=== PATIENT | female | born 1995 | race African-American/Black ===

== ENCOUNTER → 2023-04-02 16:52 | Outpatient (CLI) | payer OTHER, SELFPAY ==
[2023-04-02 19:22] LABS: Urine N gonorrhoeae NOT DETECTED
[2023-04-02 19:33] LABS: Urine Chlamydia NOT DETECTED
== END ==
PROVIDERS: Visit Provider Student in an Organized Health Care Education/Training Program
DX: N39.0 Urinary tract infection, site not specified (principal); R10.9 Unspecified abdominal pain
CPT/HCPCS: 87086; 87491; 87591

== ENCOUNTER → 2023-04-02 17:45 | Outpatient (CLI) | payer OTHER, SELFPAY ==
--- NOTE | 2023-04-02 17:47 | DI.RAD.S_ITS ---
PROCEDURE: XR SACRUM COCCYX MIN 2V INDICATIONS: R low back pain, intermittent, worse with walking TECHNIQUE: 3 views of the sacrum and coccyx acquired. COMPARISON: None. FINDINGS: Bones: No fractures or dislocations. No suspicious bony lesions. Soft tissues: Visualized bowel gas pattern is normal. No suspicious soft tissue densities. IMPRESSION: No acute fracture. No osseous lesion. If symptoms and/or clinical suspicion for pathology persist, further assessment with repeat, or advanced imaging (e.g., CT, MRI, or bone scan) may be helpful for further assessment. Dictated by: Yin Hernandez M.D. on 04/02/2023 at 18:06 Approved by: Yin Hernandez M.D. on 04/02/2023 at 18:06
--- NOTE | 2023-04-02 17:47 | DI.RAD.S_ITS ---
PROCEDURE: XR LUMBAR SPINE 2-3V INDICATIONS: R low back pain, intermittent, worse with walking TECHNIQUE: 3 views of the lumbar spine were acquired. COMPARISON: None. FINDINGS: Bones: 5 [id number] vertebrae are present. There is normal bony alignment. No vertebral body compression fractures. No suspicious bony lesions. Soft tissues: Overlying bowel gas pattern is normal. No suspicious soft tissue calcifications. IMPRESSION: No acute fracture. No osseous lesion. If symptoms and/or clinical suspicion for pathology persist, further assessment with repeat, or advanced imaging (e.g., CT, MRI, or bone scan) may be helpful for further assessment. Dictated by: Yin Hernandez M.D. on 04/02/2023 at 18:05 Approved by: Yin Hernandez M.D. on 04/02/2023 at 18:06
== END ==
PROVIDERS: Referring Provider Student in an Organized Health Care Education/Training Program; Visit Provider Student in an Organized Health Care Education/Training Program
DX: M54.50 Low back pain, unspecified (principal); N39.0 Urinary tract infection, site not specified; R10.9 Unspecified abdominal pain
CPT/HCPCS: 72100; 72220; 87086; 87491; 87591

== ENCOUNTER → 2023-10-14 07:53 | Outpatient (CLI) | payer OTHER, SELFPAY | PROVIDERS: Visit Provider Physician Assistant Medical | DX: B37.31 Acute candidiasis of vulva and vagina (principal); Z20.2 Contact with and (suspected) exposure to infections with a predominantly sexual mode of transmission | CPT/HCPCS: 87210 ==

== ENCOUNTER → 2023-10-14 08:30 | Outpatient (CLI) | payer OTHER, SELFPAY ==
[2023-10-14 12:09] LABS: Urine N gonorrhoeae NOT DETECTED
[2023-10-14 12:10] LABS: Urine Chlamydia NOT DETECTED
[2023-10-14 16:32] LABS: Hepatitis B Surface Antigen NEGATIVE s/c (NEGATIVE)
[2023-10-14 16:46] LABS: HIV 1 & 2 Ab/Ag 4th Gen Combo NEGATIVE (NEGATIVE); Hep C Virus Ab w/Reflex Quant NEGATIVE s/c (NEGATIVE)
[2023-10-15 05:27] LABS: HSV 2 IGG AB > 23.60 index (0.00-0.90)
[2023-10-15 09:15] LABS: RPR Screen Non Reactive (Non Reactive)
== END ==
PROVIDERS: Referring Provider Physician Assistant Medical; Visit Provider Physician Assistant Medical
DX: Z20.2 Contact with and (suspected) exposure to infections with a predominantly sexual mode of transmission (principal); B37.31 Acute candidiasis of vulva and vagina
CPT/HCPCS: 36415; 86592; 86695; 86696; 86803; 87210; 87340; 87389; 87491; 87591